=== PATIENT | female | born 1975 | race Caucasian/White ===

== ENCOUNTER 2020-10-22 20:06 | Emergency (ER) | payer OTHER ==
[~2020-10-22 20:06] MED LIST: ONDANSETRON ODT4 MG PO
[2020-10-22 21:06] LABS: BILIRUBIN NEGATIVE (NEGATIVE); BLOOD 1+ Ery/uL (NEGATIVE); CLARITY CLEAR (CLEAR); COLOR YELLOW (YELLOW); GLUCOSE (U) NORMAL (NORMAL); LEUKOCYTES NEGATIVE Leu/uL (NEGATIVE); NITRITE NEGATIVE (NEGATIVE); PROTEIN NEGATIVE (NEGATIVE); SPECIFIC GRAVITY >=1.030 (1.001-1.030); UROBILINOGEN 0.2 mg/dL (0.2-1.0); pH 5.5 (5.0-9.0)
[2020-10-22 21:12] LABS: URINARY WBC RARE
[2020-10-22 21:13] LABS: BACTERIA TRACE
[2020-10-22 21:35] LABS: BASOPHIL 0.4 % (0-2); EOSINOPHIL 2.4 % (0-5); HCT 37.4 % (37.0-47.0); HGB 12.8 g/dl (12.5-16.0); LYMPHOCYTE 25.8 % (15-48); MCHC 34.2 g/dL (32.0-36.0); MCV 87.6 fL (78.0-100.0); MONOCYTE 5.5 % (0-12); MPV 10.4 fL (6.0-9.5); NEUTROPHIL 65.5 % (41-80); NRBC 0; PLT 214 K/uL (150-400); RBC 4.27 M/uL (4.20-5.40); RDW 12.4 % (11.5-14.0); WBC 10.4 K/uL (4.0-10.5)
[2020-10-22 21:47] LABS: ALBUMIN 3.2 g/dL (3.4-5.0); BILIRUBIN - TOTAL 0.2 mg/dL (0.2-1.0); C-REACTIVE PROTEIN 1.5 mg/dL (<=0.90); CREATININE 1.06 mg/dL (0.51-0.95); GLOBULIN (CALCULATION) 3.2 g/dL; MAGNESIUM 1.8 mg/dL (1.8-2.4); POTASSIUM 3.6 mmol/L (3.5-5.1); TOTAL PROTEIN 6.4 g/dL (6.4-8.2)
[2020-10-23] MEDS ORDERED: ONDANSETRON ODT4 MG SL (00:03)
== END 2020-10-23 00:18 | disposition home or self-care (01) ==
LOC: FER 20:06
PROVIDERS: Emergency Medicine Emergency Medical Services
DX: E86.0 Dehydration (principal); I10 Essential (primary) hypertension; E78.5 Hyperlipidemia, unspecified; Z79.899 Other long term (current) drug therapy
CPT/HCPCS: 36415; 70450; 71045; 80053; 81001; 83735; 84484; 85025; 86140; 93005; J1885; J7120

== ENCOUNTER 2020-12-20 04:55 | Emergency (ER) | payer OTHER ==
[~2020-12-20 04:55] MED LIST changes: +ONDANSETRON ODT4 MG SL
[2020-12-20 06:15] LABS: BASOPHIL 0.4 % (0-2); EOSINOPHIL 1.8 % (0-5); HGB 13.9 g/dl (12.5-16.0); LYMPHOCYTE 15.5 % (15-48); MCH 29.3 pg (25.0-31.0); MCHC 33.1 g/dL (32.0-36.0); MCV 88.4 fL (78.0-100.0); MONOCYTE 6.4 % (0-12); MPV 10.3 fL (6.0-9.5); NEUTROPHIL 75.6 % (41-80); NRBC 0; PLT 224 K/uL (150-400); RBC 4.75 M/uL (4.20-5.40); RDW 12.6 % (11.5-14.0); WBC 11.4 K/uL (4.0-10.5)
[2020-12-20 06:28] LABS: MONOSPOT (MONONUCLEOSIS) NEGATIVE (NEGATIVE)
[2020-12-20 06:33] LABS: ALBUMIN 3.3 g/dL (3.4-5.0); BILIRUBIN - TOTAL 0.3 mg/dL (0.2-1.0); BUN/CREAT RATIO (CALC) 13.6 RATIO; CREATININE 1.1 mg/dL (0.51-0.95); GLOBULIN (CALCULATION) 3.3 g/dL; POTASSIUM 3.6 mmol/L (3.5-5.1); TOTAL PROTEIN 6.6 g/dL (6.4-8.2)
[2020-12-20] MEDS ORDERED: NORCO 5-325 TA1 EACH PO (07:08)
[2020-12-20] MEDS ORDERED: CLEOCIN300 MG PO (07:08)
== END 2020-12-20 07:37 | disposition home or self-care (01) ==
LOC: FER 04:55
PROVIDERS: Emergency Medicine Emergency Medical Services
DX: J02.9 Acute pharyngitis, unspecified (principal); I10 Essential (primary) hypertension; E78.5 Hyperlipidemia, unspecified; K21.9 Gastro-esophageal reflux disease without esophagitis
CPT/HCPCS: 36415; 80053; 85025; 86308; 87070; 87880; 96372; J0696; J1100; J1885; J7030

== ENCOUNTER 2021-02-12 12:46 | Emergency (ER) | payer OTHER ==
[~2021-02-12 12:46] MED LIST changes: +CLEOCIN300 MG PO; +NORCO 5-325 TA1 EACH PO
== END 2021-02-12 14:23 | disposition home or self-care (01) ==
LOC: FER 12:46
DX: T76.21XA Adult sexual abuse, suspected, initial encounter (principal); I10 Essential (primary) hypertension; F17.210 Nicotine dependence, cigarettes, uncomplicated
CPT/HCPCS: 99284

== ENCOUNTER → 2021-03-06 | Day surgery (SDC) | payer OTHER ==
[~2021-03-06] VITALS: Ht 167.6 cm; Wt 109.1 kg
[~2021-03-06] MED LIST changes: +ATENOLOL25 MG PO; +KEFLEX750 MG PO; +NITROFURANTOIN100 MG PO; +OMEPRAZOLE40 MG PO; +PERCOCET 5-3251 EACH PO; +TOPAMAX50 MG PO; +VITAMIN D3 PO; +VRAYLAR1.5 MG PO
[2021-03-06 08:54] LABS: HCG (URINE) SCREEN NEGATIVE (NEGATIVE)
[2021-03-06 08:57] LABS: BASOPHIL 0.5 % (0-2); EOSINOPHIL 5.7 % (0-5); HCT 42.4 % (37.0-47.0); LYMPHOCYTE 24.1 % (15-48); MCH 29.7 pg (25.0-31.0); MCV 89.8 fL (78.0-100.0); MONOCYTE 5.3 % (0-12); MPV 10.3 fL (6.0-9.5); NEUTROPHIL 63.9 % (41-80); NRBC 0; PLT 249 K/uL (150-400); RBC 4.72 M/uL (4.20-5.40); WBC 8.7 K/uL (4.0-10.5)
[2021-03-06 09:01] LABS: CREATININE 0.94 mg/dL (0.51-0.95); POTASSIUM 3.7 mmol/L (3.5-5.1)
[2021-03-06 09:22] LABS: BILIRUBIN NEGATIVE (NEGATIVE); BLOOD 1+ Ery/uL (NEGATIVE); CLARITY CLEAR (CLEAR); COLOR YELLOW (YELLOW); GLUCOSE (U) NORMAL (NORMAL); LEUKOCYTES 1+ Leu/uL (NEGATIVE); NITRITE NEGATIVE (NEGATIVE); PROTEIN NEGATIVE (NEGATIVE); SPECIFIC GRAVITY 1.025 (1.001-1.030); UROBILINOGEN 0.2 mg/dL (0.2-1.0)
[2021-03-06 09:31] LABS: BACTERIA TRACE
== END | disposition home or self-care (01) ==
LOC: FAS 08:10
PROVIDERS: Obstetrics & Gynecology
DX: N90.7 Vulvar cyst (principal); I10 Essential (primary) hypertension; K21.9 Gastro-esophageal reflux disease without esophagitis; E78.00 Pure hypercholesterolemia, unspecified; F31.9 Bipolar disorder, unspecified; F41.9 Anxiety disorder, unspecified; F17.200 Nicotine dependence, unspecified, uncomplicated; Z72.89 Other problems related to lifestyle; Z79.899 Other long term (current) drug therapy; Z88.8 Allergy status to other drugs, medicaments and biological substances; Z88.1 Allergy status to other antibiotic agents; Z98.51 Tubal ligation status
CPT/HCPCS: 36415; 80048; 81001; 84703; 85025; 86850; 86900; 86901; J1100; J1170; J1885; J2250; J2405; J2704; J3010; J7120